=== PATIENT | male | born 1940 | race Caucasian/White ===

== ENCOUNTER 2017-01-04 21:37 | Inpatient (IN) | payer OTHER ==
--- NOTE | 2017-01-04 21:48 | PDOC ---
History of Present Illness - General Chief Complaint: Injury Stated Complaint: WEAKNESS/VOMITING Time Seen by Provider: 01/04/17 21:42 Exam Limitations: Clinical Condition - History of Present Illness Initial Comments: 76 year old M with PMH of liver transplant (on Tacrolimus), HLD, and BPH brought in by EMS after falling and calling EMS when he couldn't get back up. The patient admits he might be slightly more confused than usual. He fell because he claims that he hasn't eaten in 15 hours and felt weak after getting up from his chair. When asked why he hasn't eaten in 15 hours, he states he is unsure why and has "no good reason". He fell on his right side onto his forearm and right hip. Denies LOC, syncope, or pre-syncopal sensation but just claims he was too weak to stand and fell. Afterward, he felt some mid back tenderness, right arm pain, and right hip pain. He was down for a half an hour and began vomiting as well which was non bilious, non bloody. He lives at home alone and doesn't recall any recent illness, cough , chest osullivan, SOB, or other symptoms. Of note, he was AOx4 during the interview despite the fact that his story doesn' t quite add up. HE hasn nto been seen at this hospital before. 01/04/17 23:19 Past History - Past Medical History Allergies/Adverse Reactions: Allergies Allergy/AdvReac Type Severity Reaction Status Date / Time No Known Allergies Allergy Verified 01/04/17 21:53 Review of Systems - Review of Systems Constitutional: No: Chills, Diaphoresis, Fever HEENTM: No: Blurred Vision, Tearing, Recent change in vision Respiratory: No: Cough, Orthopnea, Shortness of Breath, SOB with Exertion Cardiac (ROS): No: Chest Pain, Edema, Irregular Heart Rate ABD/GI: Yes: Nausea, Poor Appetite, Vomiting. No: Abdominal Distended, Diarrhea : No: Dysuria, Discharge, Frequency Integumentary: Yes: Bruising Neurological: No: Headache, Numbness, Paresthesia *Physical Exam - Physical Exam General Appearance: Yes: Appropriately Dressed, Apparent Distress, Moderate Distress HEENT: positive: EOMI, SHARDA, Normal ENT Inspection. negative: Normal Voice ( Voice seemd slightly muffled and weak.) Neck: positive: Trachea midline, Normal Thyroid, Supple. negative: Tender, Rigid Respiratory/Chest: positive: Rhonchi (Bilateral rhonchi). negative: Chest Tender, Lungs Clear, Normal Breath Sounds, Respiratory Distress, Accessory Muscle Use Cardiovascular: positive: Regular Rhythm, Regular Rate, S1, S2. negative: Edema , JVD, Murmur Gastrointestinal/Abdominal: positive: Normal Bowel Sounds, Tender (Slightly ttp bilaterally across lower abdomen), Flat, Soft. negative: Pulsatile Mass Musculoskeletal: positive: Normal Inspection. negative: CVA Tenderness Extremity: positive: Normal Capillary Refill, Erythema, Other (Tender to palpation over right trocahnteric bursae but able to actively flex, extend, aduct, and abduct at hip joint. TTP over lateral olecranon but able to flex, extend, supinate and pronate. ). negative: Normal Inspection Integumentary: positive: Normal Color, Dry, Warm, Erythema, Bruising, Other ( Skin over lateral portion of forearm exhibting 3 x 5 cm abrasion with erythema, slight swelling, and epidermis loose from dermal layer. Not apparently infected appearing. ) Neurologic: positive: Fully Oriented, Alert, Normal Mood/Affect, Other (3/5 strength bilateral LEs. 4/5 stregnth in BL UEs). negative: Motor Strength 5/5 Medical Decision Making - Medical Decision Making 76 year old with liver transplant with unclear reason for fall and weakness. Patient is AOx4 yet does not have clear reason for being "hungry" and not ordering food for "15 hours". Will work up broadly with CBC, CMP, Troponin, CXR , XR Elbow, X ray hip, Xray t spine, UA, and EKG. Patient was signed out to Dr. Dickson with all tests pending, sleeping, in stable condition. 01/05/17 00:20 *DC/Admit/Observation/Transfer Diagnosis at time of Disposition: Fall - Attestations Physician Attestion: I, Dr. Lamine Perez, attest that this document has been prepared under my direction and personally reviewed by me in its entirety. I further attest, that it accurately reflects all work, treatment, procedures and medical decision -making performed by me. 01/05/17 00:27
[2017-01-04 21:56] VITALS: BMI 22.4
--- NOTE | 2017-01-04 22:28 | PDOC ---
Attending Attestation - Resident Resident Name: Lamine Perez - ED Attending Attestation I have performed the following: I have examined & evaluated the patient, The case was reviewed & discussed with the resident, I agree w/resident's findings & plan, Exceptions are as noted - HPI HPI: The patient is a 76 yo M with a past medical history significant for liver transplant, BPH, HLD who presents with mechanical fall. The patient states he fell on his R arm and R hip. The patient denies head trauma and LOC. Patient called EMS to get him and reported he was too weak to stand. The patient states he tried to get out of his chair and fell. He notes he hasnt eaten in 15 hours. The patient states he lives alone. The patient notes that he was on the floor for about 30 minutes and started to vomit while he was on the floor. The patient denies fevers, chills, cough and shortness of breath. - Physicial Exam PE: GENERAL: Well developed, well nourished. Awake and alert. No acute distress. HEENT: Normocephalic, atraumatic. PERRLA, EOMI. No conjunctival pallor. Sclera are non- icteric. Moist mucous membranes. Oropharynx is clear. NECK: Supple. Full ROM. No JVD. Carotid pulses 2+ and symmetric, without bruits. No thyromegaly. No lymphadenopathy. CARDIOVASCULAR: Regular rate and rhythm. No murmurs, rubs, or gallops. Distal pulses are 2+ and symmetric. PULMONARY: No evidence of respiratory distress. Lungs clear to auscultation bilaterally. No wheezing, rales or rhonchi. ABDOMINAL: Soft. Non-tender. Non-distended. No rebound or guarding. No organomegaly. Normoactive bowel sounds. MUSCULOSKELETAL Tenderness to palpation on R hip. Normal range of motion at all joints. No bony deformities or tenderness.Tenderness to T spine. EXTREMITIES: R arm abrasion of 3x5 cm with erythema and mild edema. No cyanosis. No clubbing. No edema. No calf tenderness. SKIN: Warm and dry. Normal capillary refill. No rashes. No jaundice. NEUROLOGICAL: Alert, awake, appropriate. Cranial nerves 2-12 intact. No deficits to light touch and temperature in face, upper extremities and lower extremities. 3/5 bilateral LE. 4/5 bilateral UE.. Normoreflexic in the upper and lower extremities. Normal speech. Toes are down-going bilaterally. Gait not assessed. PSYCHIATRIC: Cooperative. Good eye contact. Appropriate mood and affect. - Medical Decision Making Documentation prepared by Christine Alexandra, acting as medical doctor md for Alfonzo Nuno MD/DO. <IbrahimaChristine - Last Filed: 01/04/17 23:32> - Resident Resident Name: AnaLamine - ED Attending Attestation I have performed the following: I have examined & evaluated the patient, The case was reviewed & discussed with the resident, I agree w/resident's findings & plan <Alfonzo Nuno - Last Filed: 01/05/17 01:53> Discharge Disposition <IbrahimaChristine - Last Filed: 01/04/17 23:32> - Discharge Dispostion Admit: Yes <Alfonzo Nuno - Last Filed: 01/05/17 01:53> - Diagnosis Fall, Right-sided cerebrovascular accident (CVA) Heart Score/ECG Review #1 Sinus rhythm with 1st degree AV block @81bpm. Otherwise normal ECG. <IbrahimaChristine - Last Filed: 01/04/17 23:32> tPA Exclusion checklist 3-4.5h - Time Elapsed Date last known well: 01/04/17 Time last known well: 00:00 Elaspsed time: 1 Day(s) and 1 Hour(s) and 51 Minutes - Thrombolytic Therapy Candidate Is patient eligible for thrombolytic therapy: No - Exclusion Criteria 3-4.5 hr SBP greater than 185 or DBP greater than 110mmHg despite tx: No Recent IC/spinal surgery,head trauma or stroke<3mos.: No Hx IC hemorrhage, IC neoplasm, AV malformation or aneurysm: No Active internal bleeding: No Blding diathesis(low plt ct, inc PTT,INR>1.7 or use of NOAC): No Symptoms suggest subarachnoid hemorrhage: No CT demonstrates multilobar infarct(>1/3 cerebral hemiphere): No Arterial puncture at noncompressible site in previous 7 days: No Blood glucose concentration less than 50mg/dL (2.7mmol/L): No - Relative Exclusion Criteria 3-4.5 hr Life expectancy <1 yr or severe co-morbid illness: No : No Patient/family refused: No Rapid improvement: No Stroke severity too mild: No Recent acute AK (w/in previous 3 months): No Seizure at onset with postictal residual neuro impairments: No Major surgery or serious trauma w/in previous 14 days: No Recent GI or hemorrhage (w/in previous 21 days): No - Add'l Relative Exclusion 3-4.5 hr Age > 80: No Hx of both diabetes AND prior ischemic stroke: No Taking an oral anticoagulant regardless of INR: No - Ineligibility reason(s) Reasons No tPA given: See reason(s) noted above (unknown when pt was last known well) <Alfonzo Nuno - Last Filed: 01/05/17 01:53>
[2017-01-04] MEDS ORDERED: SODIUM CHLORIDE 1,000 ML IV STA (22:33)
--- NOTE | 2017-01-05 00:25 | PDOC ---
*Physical Exam - Vital Signs Last Vital Signs Temp Pulse Resp BP Pulse Ox 97.6 F 91 H 20 163/90 96 01/04/17 21:53 01/04/17 21:53 01/04/17 21:53 01/04/17 21:53 01/04/17 21:53 - Physical Exam Comments: Exam limited because patient taken to CT General Appearance: Yes: Nourished HEENT: positive: EOMI, SHARDA, Other (NCAT) Respiratory/Chest: positive: Lungs Clear, Normal Breath Sounds Cardiovascular: positive: Regular Rhythm, Regular Rate ED Treatment Course - LABORATORY CBC & Chemistry Diagram: 01/04/17 23:45 01/07/17 13:40 - RADIOLOGY Radiograph Interpretation: RAD/CHEST X-RAY PORTABLE* 2 views reveal a sclerotic knob and descending aorta, normal giovana, normal heart , clear lungs and no sign of a pneumothorax, pleural fluid or atelectasis. The angles are sharp and the soft tissues are intact. There are degenerative changes in the spine. There are upper abdominal left sided clips. If symptoms persist, further imaging may be of help. Impression: No acute pathology. Left upper quadrant clips. RAD/ELBOW-RIGHT AP, lateral and oblique views reveal no sign of acute fracture, subluxation bone destruction. There is olecranon spurring. There is slight periosteal thickening seen in the shafts of the radius and ulna. No sign of swelling, foreign body or soft tissue air. Fat pad elevation is not seen. If symptoms persist, further imaging may be of help. Impression: No acute pathology RAD/HIP PELVIS-RIGHT Single AP view of pelvis. Right hip 2 views. Status post total left hip replacement. No acute bony abnormalities are seen. Degenerative changes are observed at L4-5, L5-S1, disc space narrowing, facet joint arthropathy, left lateral bridging osteophyte at L4-5. No evidence of the right hip dislocation. No displaced fracture is seen. Cystic changes noted in the superior aspect of acetabulum. Impression. Status post total left hip replacement No evidence of the right hip fracture, or dislocation. No acute bony abnormalities are seen. CT/HEAD CT WITHOUT CONTRAST Findings. Serial axial images of the brain were obtained from foramen magnum to the cranial vertex without intravenous contrast. The study was supplemented with computer-generated coronal and sagittal reconstruction images. Online Marketing Strategist image was reviewed. Zone of decreased attenuation seen in the right cerebellum without hemorrhage - recent nonhemorrhagic stroke. Normal variant prominent cisterna magna. No evidence of acute subarachnoid hemorrhage, acute intra-axial or extra- axial fluid collection consistent with subdural or epidural hematoma. No mass effect, midline shift, acute supratentorial territorial ischemic changes, herniation or edema is present. Loss of volume of the brain parenchyma with involutional changes. Examination of the bone windows show no fracture. The visualized paranasal sinuses and mastoid air cells are clear. Symmetrical ocular globes. Unremarkable retro-orbital soft tissues. Impression. Recent nonhemorrhagic infarct - right cerebellum. No evidence of acute intracranial hemorrhage. No evidence of supratentorial acute territorial ischemic changes. CT/CERVICAL SPINE CT W/O CONTR Direct axial images were obtained from the base of the skull through T2. The study was supplemented with computer-generated sagittal, coronal reconstruction images. Findings. Straightening of the cervical spine is noted on the sagittal reconstruction images. No acute fracture, compression deformity, of subluxation is seen. Normal relationship of odontoid to anterior arch of C1. Intact odontoid. Normal symmetrical articulation of atlantoaxial and occipito atlantal joints. Osteoarthritis of the left atlantal axial Multilevel fusion of vertebral bodies, facet joints with ossification of the anterior paraspinal soft tissues consistent diffuse idiopathic skeletal hyperostosis (DISH). 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 Spinal stenosis. Midline posterior subcutaneous lipoma septations, without calcification.. The size of the lipoma 2.5 cm x 4.2 cm x 5.5 cm Extensive left facet joint arthropathy at C2-C3, right facet arthropathy at C3- C4. The intraspinal contents cannot be adequately evaluated due to the beam hardening artifacts. The airways are patent. No evidence of prevertebral soft tissue swelling. The lung apices are clear. Impression. No acute bony abnormality seen. Intact odontoid. The predental space is not widened. Multilevel fusion of vertebral bodies, facet joints with ossification of the anterior paraspinal soft tissues consistent diffuse idiopathic skeletal hyperostosis (DISH). 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 Spinal stenosis. - Medications Given in the ED: ED Medications Discontinued Medications Generic Name Dose Route Start Last Admin Trade Name Freq PRN Reason Stop Dose Admin Sodium Chloride 1,000 mls @ 1,000 mls/hr 01/04/17 22:33 01/04/17 23:32 Normal Saline - IV 01/04/17 23:32 1,000 mls/hr ASDIR STA Administration Progress Note - Progress Note Progress Note: Received sign-out for patient from Dr. Perez Patient is a stable 76 year old male liver transplant recipient presenting s/p fall from standing. Patient was down for 1/2 hour, unsure why he fell, endorsed dizziness, N/V and not eating prior to falling, right hip pain, mid back pain and a right forearm abrasion post fall, denied head trauma or LOC Standard bloodwork, coagulation, cardiac, UA, CXR, Borrego scan and xrays of hip and arm ordered and pending Per patient records from [place] obtained from , patient has history of HLN, ETOH cirrhosis s/p transplant (2004), thoracic aortic aneurism s/p repair ( 1998), AAA (4.5) mesenteric ischemia and CKD (CR baseline 2.6) Patient now endorses hitting right side of head on closet door, states he couldn 't get up because he was weak He is but lives alone, drives, high ADL Transplant Surgeon: Dr. Fadi Sharma ([facility]) Medical Decision Making - Medical Decision Making 76 yo male s/p fall from standing with an unclear story regarding cause, AAOx4, c/o arm pain, hip pain, lumbar spine pain. Ddx: intracerebral hemorrhage, hip fx, spine fx, infection, cardiac pathology, dehydration CBC, CMP CT head, spine, xray hip, arm cardiac w/o 01/05/17 00:37 CBC WBC 13.3 K/mm3 (4.0-10.0) H 01/04/17 23:45 RBC 5.08 M/mm3 (4.00-5.60) 01/04/17 23:45 Hgb 15.2 GM/dL (11.7-16.9) 01/04/17 23:45 Hct 46.0 % (35.4-49) 01/04/17 23:45 MCV 90.6 fl (80-96) 01/04/17 23:45 MCH 30.0 pg (25.7-33.7) 01/04/17 23:45 MCHC 33.1 g/dl (32.0-35.9) 01/04/17 23:45 RDW 13.9 % (11.9-15.9) 01/04/17 23:45 Plt Count 216 K/MM3 (134-434) 01/04/17 23:45 MPV 9.0 fl (7.5-11.1) 01/04/17 23:45 Neutrophils % 89.0 % (42.8-82.8) H 01/04/17 23:45 Lymphocytes % 5.8 % (8-40) L 01/04/17 23:45 Monocytes % 4.5 % (3.8-10.2) 01/04/17 23:45 Eosinophils % 0.2 % (0-4.5) 01/04/17 23:45 Basophils % 0.5 % (0-2.0) 01/04/17 23:45 ESR 5 mm/hr (0-20) 01/05/17 05:53 Leukocytosis (neutrophil predominant) INR wnl (1.12) Slightly acidotic (CO2 19) CR 2.9 (at baseline) Troponin(-), CK MB 5.643 (consistent with fall) BNP 494 (age adjusted wnl) CT reveals a recent nonhemorrhagic infarct in the right cerebellum Stroke protocol implemented (plavix, statin, neuro consult) Patient admitted to Dr. Yung by Dr. Nuno Right arm abrasion was cleaned and dressed *DC/Admit/Observation/Transfer Diagnosis at time of Disposition: Fall, Right-sided cerebrovascular accident (CVA) - Attestations Physician Attestion: 01/08/17 06:47 I, Dr. Herson Hung, attest that this document has been prepared under my direction and personally reviewed by me in its entirety. I further attest, that it accurately reflects all work, treatment, procedures and medical decision -making performed by me.
[2017-01-05 00:29] LABS: BASOPHIL 0.5 % (0-2.0); EOSINOPHIL 0.2 % (0-4.5); MCHC 33.1 g/dl (32.0-35.9); MEAN CELL VOLUME 90.6 fl (80-96); PLATELET COUNT 216 K/MM3 (134-434); RDW 13.9 % (11.9-15.9); WHITE BLOOD COUNT 13.3 K/mm3 (4.0-10.0)
[2017-01-05 00:52] LABS: ALBUMIN 4.3 g/dl (3.4-5.0); ANION GAP 13 (8-16); BILIRUBIN,TOTAL 0.6 mg/dL (0.2-1.0); CO2 19 mmol/L (21-32); CREATININE 2.9 mg/dL (0.7-1.3); GLUCOSE,RANDOM 126 mg/dL (74-106); SGOT/AST 29 U/L (15-37); SGPT/ALT 22 U/L (12-78); TOT PROT 7.9 g/dl (6.4-8.2)
[2017-01-05 00:55] LABS: ALK PHOS 113 U/L (45-117); TROPONIN I < 0.02 ng/ml (0.00-0.05)
[2017-01-05 01:00] LABS: INR 1.12 (0.82-1.09); PROTHROMBIN TIME (PATIENT) 12.3 SEC (9.98-11.88)
--- NOTE | 2017-01-05 01:49 | PN ---
Teaching Attending Note Name of Resident: Shahla Shields ATTENDING PHYSICIAN STATEMENT I saw and evaluated the patient. I reviewed the resident's note and discussed the case with the resident. I agree with the resident's findings and plan as documented. SUBJECTIVE: 76 M with pmhx of HLD, BPH, liver transplant who was BIBA s/p fall. States he felt weak because he did not eat for 15 hrs prior to fall. States he was on the ground for about half hr. and had non-bilious vomiting at that time. Notes his right arm, hip and back are tender. Does not know when he last felt well. OBJECTIVE: Physical: VS: Vital Signs Period Temp Pulse Resp BP Sys/Jesus Pulse Ox Last 24 Hr 97.6 F-98.8 F 84-91 18-20 157-163/90-96 96-98 GEN:NAD, Resting in bed HEENT: NCAT, PERRL CARD: RRR S1, S2 RESP: CTAB ABD: BSX4, NTD to palpation EXT: - C/C/E NEURO: L. facial droop, MS +5/5 bilateral UE/LE CT HEAD WO CON: Acute infarct of R. cerebellar lobe CT Thoracic Spine: 4.4cm upper abdomianl aa. EKG: SR with 1st deg. block CXR: No acute process ASSESSMENT AND PLAN: 76 M with HLD, BPH, s/p Liver transplant who presents s/p fall found to have acute cerebellar infarct 1.)Acute Cerebellar CVA -MRI Brain wo con -ECHO/Carotids -ASA (pt. refused full dose) -Cannot take statin due to liver transplant -HLD/Alc/TSH/ESR/B12/Folate -Speech and Swallow -Neuro Consult -EKG/Troponins 2.)HLD -Lipid panel 3.)S/P Fall -PT 4.) QUINTON/?CKD - U Lytes - Get base CR from prior labs - Avoid Nephrotoxins 5.)BPH - C/W Home meds 6.)Leukocytosis -Stat UA/CXR 7.)Dvt PPX -SCD Place in Stroke Tele
[2017-01-05] MEDS: ASPIRIN 325 MG ENTERIC COATED TABLET (FP) PO ONE ×2 (02:14→02:29)
--- NOTE | 2017-01-05 02:14 | HP ---
CHIEF COMPLAINT: Fall and hist head and arm . PCP: HISTORY OF PRESENT ILLNESS: Patient is a 76 Yo white male with PMHx of HLD, BPH, S/p liver transplant (on Tacrolimus) S/P hip replacement, S/P abdominal aneurysm clipped, who brought to the hospital today by EMS after he fell down. Patient lives by him self. Last seen [facility] his [facility] around 6 pm when he tried to get out of bed , he felt dizzy spinning around the room and he fell down hit his right arm and head against the wall. He complains of right arm and hip pain. Patient was on the floor for about one hour when the ambulance arrived. He Denies any LOC, or seizure symptoms. He was not able to get up because he felt weak and did not eat for the last 15 hours(not sure why ?). He denies any headache, blurry vision, chest pain , SOB, N/V/D/C , abdominal pain or any urinary symptoms. Patient has H/O similar fall 6 months ago. Patient is but live in separate apartment from his who was presented at the ED. 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 Smoking:None Alcohol:Previous heavy Alcoholic, S/P Liver transplant Drugs: denies Family History: Re Allergies No Known Allergies Allergy (Verified 01/04/17 21:53) HOME MEDICATIONS: Home Medications Medication Instructions Recorded Aspirin [ASA -] 81 mg PO DAILY 01/05/17 Famotidine [Pepcid] 20 mg PO BID 01/05/17 Sodium Bicarbonate 650 mg PO DAILY 01/05/17 Tacrolimus [Prograf] 1 mg PO AM 01/05/17 Tamsulosin HCl [Flomax] 0.4 mg PO BID 01/05/17 Trazodone HCl 25 mg PO HS PRN 01/05/17 REVIEW OF SYSTEMS CONSTITUTIONAL: Absent: fever, chills, diaphoresis, +generalized weakness, malaise, loss of appetite, weight change HEENT: Absent: rhinorrhea, nasal congestion, throat pain, throat swelling, difficulty swallowing, mouth swelling, ear pain, eye pain, visual changes CARDIOVASCULAR: Absent: chest pain, syncope, palpitations, irregular heart rate, lightheadedness , peripheral edema RESPIRATORY: Absent: cough, shortness of breath, dyspnea with exertion, orthopnea, wheezing, stridor, hemoptysis GASTROINTESTINAL: Absent: abdominal pain, abdominal distension, nausea, vomiting, diarrhea, constipation, melena, hematochezia GENITOURINARY: Absent: dysuria, frequency, urgency, hesitancy, hematuria, flank pain, genital pain MUSCULOSKELETAL: Absent: +myalgia, +arthralgia, joint swelling, back pain, neck pain SKIN: Absent: rash, itching, pallor, remarkable for right arm ecchymoses and some brusis on the left arm too HEMATOLOGIC/IMMUNOLOGIC: Absent: easy bleeding, easy bruising, lymphadenopathy, frequent infections ENDOCRINE: Absent: unexplained weight gain, unexplained weight loss, heat intolerance, cold intolerance NEUROLOGIC: Absent: headache, focal weakness or paresthesias, dizziness when he get up , unsteady gait, seizure, mental status changes, bladder or bowel incontinence PSYCHIATRIC: Absent: anxiety, depression, suicidal or homicidal ideation, hallucinations. PHYSICAL EXAMINATION Vital Signs - 24 hr 01/04/17 01/05/17 21:53 00:22 Temperature 97.6 F 98.8 F Pulse Rate 91 H Pulse Rate [ 84 Apical] Respiratory 20 18 Rate Blood Pressure 163/90 Blood Pressure 157/96 [Right Arm] O2 Sat by Pulse 96 98 Oximetry (%) GENERAL: Awake, alert, and fully oriented, in no acute distress. HEAD: Normal with no bruisis or ecchymosis.. EYES: Pupils equal, round and reactive to light, extraocular movements intact, sclera anicteric, conjunctiva clear. No lid lag. EARS, NOSE, THROAT: Ears normal, nares patent, oropharynx clear without exudates. NECK: Normal range of motion, supple without lymphadenopathy, JVD, or masses. LUNGS: Breath sounds equal, clear to auscultation bilaterally. No wheezes, and no crackles. No accessory muscle use. HEART: Regular rate and rhythm, normal S1 and S2 without murmur, rub or gallop. ABDOMEN: Soft, nontender, not distended, normoactive bowel sounds, no guarding, no rebound, no masses. No hepatomegaly or splenomegaly. MUSCULOSKELETAL: Normal range of motion at all joints. No bony deformities or tenderness. No CVA tenderness. UPPER EXTREMITIES: 2+ pulses, warm, well-perfused. No cyanosis. No clubbing. No peripheral edema. Right arm ecchymosis LOWER EXTREMITIES: 2+ pulses, warm, well-perfused. No calf tenderness. No peripheral edema. NEUROLOGICAL: Cranial nerves II-XII intact. Normal speech. shuffling gait , weakness in his right leg.3/5 strength bilateral LEs. 4/5 stregnth in B/L UEs. Finger nose test was negative. PSYCHIATRIC: Cooperative. Good eye contact. Appropriate mood and affect. SKIN: Warm, dry, normal turgor, no rashes or lesions noted, normal capillary refill. Laboratory Results - last 24 hr 01/04/17 01/04/17 01/04/17 23:45 23:45 23:45 WBC 13.3 H RBC 5.08 Hgb 15.2 Hct 46.0 MCV 90.6 MCH 30.0 MCHC 33.1 RDW 13.9 Plt Count 216 MPV 9.0 Neutrophils % 89.0 H Lymphocytes % 5.8 L Monocytes % 4.5 Eosinophils % 0.2 Basophils % 0.5 INR 1.12 Sodium 139 Potassium 4.9 Chloride 107 Carbon Dioxide 19 L Anion Gap 13 BUN 55 H Creatinine 2.9 H Creat Clearance w eGFR 21.15 Random Glucose 126 H Calcium 9.0 Total Bilirubin 0.6 AST 29 ALT 22 Alkaline Phosphatase 113 Creatine Kinase 240 Creatine Kinase Index 2.3 CK-MB (CK-2) 5.643 H Troponin I < 0.02 B-Natriuretic Peptide 494.01 H Total Protein 7.9 Albumin 4.3 Blood Type Antibody Screen 01/04/17 23:45 WBC RBC Hgb Hct MCV MCH MCHC RDW Plt Count MPV Neutrophils % Lymphocytes % Monocytes % Eosinophils % Basophils % INR Sodium Potassium Chloride Carbon Dioxide Anion Gap BUN Creatinine Creat Clearance w eGFR Random Glucose Calcium Total Bilirubin AST ALT Alkaline Phosphatase Creatine Kinase Creatine Kinase Index CK-MB (CK-2) Troponin I B-Natriuretic Peptide Total Protein Albumin Blood Type A POSITIVE Antibody Screen Negative CBC, BMP 01/04/17 23:45 01/04/17 23:45 CT HEAD (01/04/17): Acute infarct of the right cerebellar lobe CT Thoracic Spine (01/04/17): 4.4cm upper abdominal aortic aneurysm Chest X-Ray (01/04/17): No acute pathology CT Thoracic Spine: 4.4cm upper abdominal AA. EKG: SR with 1st deg block ASSESSMENT/PLAN: Patient is a 76 Yo white male with PMHx of HLD,CKD, BPH, S/p liver transplant ( on Tacrolimus), S/P hip replacement who brought to the hospital today by EMS after he fell down and he hit his head, right arm against the wall. In the ED he found to have acute infarct of the right cerebral lobe and was admitted to stroke/tele for further evaluation. # Acute cerebellar CVA * EKG, and trop to R/O ACS * Aspirine 81 MG (pt refused full dose ), pt also refused the statins, Gimfibrizol was given (home med) * MRI brain with out contrast, * Carotid Doppler , Echocardiogram * Lipid panel , * Folic acid , B12 * CRP, ESR * TSH, A1C * Speech and swallow test * Neurocheck every 12 hours * Neuroconsult * PT * * # S/P Fall * Fall risk precautions * PT * # Leuckocytosis: * WBC 13.000 * CBC, BMP * UA * CXR * repeat in the mori # S/P liver Transplant * Procedure was done around 1998 * Check prograf level * Prograf 0.5 MG Q 48/H starting on today 01/05/2017@ 10 AM * Contact his liver Transplant Dr.Glyn Tobar @ [facility] @ [phone] * * * # HLD , chronic * Lipid panel * Continue home med Gemfibrozil * * # CKD : * Cr base line 2.6, Cr Today 2.9 * Avoid nephrotoxic agents * IV Fluids 0.9 NS @ 75 cc/h * UA , Urine lytes * * # BPH, Chronic * Continue home meds Flomax 0.4 mg PO BID * # F/E/N * NPO till pass till swallow test, IVF 0.9 NS @ 75 CC/h * Electrolytes :WNL * NPO till swallow test, then regular diet with aspiration precaution * * # Proph: * DVT : High risk, SCDS * GI: Continue home meds Pepcid * # Dispo: * Admit to stroke tele * Full Code Discuss with Dr. Mae and the team Dr. Carlos Haley PGY 1 Visit type - Emergency Visit Emergency Visit: Yes ED Registration Date: 01/05/17 Care time: The patient presented to the Emergency Department on the above date and was hospitalized for further evaluation of their emergent condition. - New Patient This patient is new to me today: Yes Date on this admission: 01/08/17 - Critical Care Critical Care patient: No
[2017-01-05] MEDS ORDERED: ASPIRIN 325 MG ENTERIC COATED TABLET (FP) ONE (02:17)
--- NOTE | 2017-01-05 04:34 | HP ---
HISTORY OF PRESENT ILLNESS: Patient is a 76 year old male with a PMHx of Liver transplant (On Tacrolimus), HLD, CKD, BPH who was BIBEMS s/p fall. Patient reports he felt weak throughout the day and relates it to poor oral intake for the last 24 hours but is unsure why he feels this way. Patient remembers standing up then feeling weak and falling on his right side landing on his right forearm and right hip. Otherwise , patient denies fever, chills, abdominal pain, chest pain, palpitations, shortness of breath. HOME MEDICATIONS: Home Medications Medication Instructions Recorded Aspirin [ASA -] 81 mg PO DAILY 01/05/17 Famotidine [Pepcid] 20 mg PO BID 01/05/17 Sodium Bicarbonate 650 mg PO DAILY 01/05/17 Tacrolimus [Prograf] 1 mg PO AM 01/05/17 Tamsulosin HCl [Flomax] 0.4 mg PO BID 01/05/17 Trazodone HCl 25 mg PO HS PRN 01/05/17 Gemfibrozil 600 mg PO BID 01/05/17 PHYSICAL EXAMINATION Vital Signs - 24 hr 01/04/17 01/05/17 21:53 00:22 Temperature 97.6 F 98.8 F Pulse Rate 91 H Pulse Rate [ 84 Apical] Respiratory 20 18 Rate Blood Pressure 163/90 Blood Pressure 157/96 [Right Arm] O2 Sat by Pulse 96 98 Oximetry (%) GENERAL: Awake, alert, and fully oriented, in no acute distress. HEAD: Normal with no signs of trauma. EYES: Extraocular movements intact, sclera anicteric, conjunctiva clear. LUNGS: Breath sounds equal, clear to auscultation bilaterally. No wheezes, and no crackles. No accessory muscle use. HEART: Regular rate and rhythm, normal S1 and S2 without murmur, rub or gallop. ABDOMEN: Soft, nontender, not distended, normoactive bowel sounds, no guarding, no rebound, no masses. UPPER EXTREMITIES: 3x5cm abrasion of the skin on the lateral aspect of the forearm with mild swelling, erythema. No peripheral edema. LOWER EXTREMITIES: No peripheral edema. NEUROLOGICAL: Slurred speech with mild left facial droop. sensory intact throughout. Motor strength 5/5 throughout. Abnormal Lab Results 01/04/17 01/04/17 23:45 23:45 WBC 13.3 H Neutrophils % 89.0 H Lymphocytes % 5.8 L Carbon Dioxide 19 L BUN 55 H Creatinine 2.9 H Random Glucose 126 H CK-MB (CK-2) 5.643 H B-Natriuretic Peptide 494.[address] HEAD (01/04/17): Acute infarct of the right cerebellar lobe CT Thoracic Spine (01/04/17): 4.4cm upper abdominal aortic aneurysm Chest X-Ray (01/04/17): No acute pathology ASSESSMENT/PLAN: Patient is a 76 year old male with a PMHx of Liver transplant (On Tacrilomus), HLD, CKD, BPH who presented for s/p fall and was found to have an acute stroke. Patient admitted for further monitoring and management. Acute Cerebellar CVA -ECHO, Carotid Doppler, MRI of brain ordered -ASA loading dose ordered but patient refused loading dose and wants baby ASA -Lipid panel, A1C, TSH, ESR/CRP, B12/Folate ordered -Will resume Gemfibrozil. Unable to take statin due to liver transplant but may take Pravastatin, which is not carried in this hospital. -Continue to trend EKG and Troponin -Speech and swallow consult placed -Neuro Checks -Physical therapy placed -Neuro consult placed S/P Fall -Fall risk precaution -Physical therapy ordered S/P Liver transplant ->10+ years ago -Check Prograf levels. -Continue Profrag 0.5mg Q48H with next dose in the morning (01/05/17) -Contact liver transplant physician due to careful monitoring of any medications administered. Dr. Fadi Sharma [phone] HLD -Lipid Panel ordered -Continue home medication Gemfibrozil QUINTON on CKD - reports baseline of 2.6 -Urine lytes ordered -IV Fluids -Continue to monitor BMP -Avoid Nephrotoxic meds BPH -Continue with home medication Flomax F/E/N -IV NS @75cc/hr -Electrolytes wnl -NPO until speech and swallow evaluation Prophylaxis -High Risk. SCD's for DVT prophylaxis -Continue home medication Pepcid for history of GERD Disposition -Full code -Admit to Stroke/Telemetry. Waiting for Neurology evaluation and recommendation Visit type - Emergency Visit Emergency Visit: Yes ED Registration Date: 01/05/17 Care time: The patient presented to the Emergency Department on the above date and was hospitalized for further evaluation of their emergent condition. - New Patient This patient is new to me today: Yes Date on this admission: 01/05/17 - Critical Care Critical Care patient: No
[2017-01-05] MEDS: TACROLIMUS 0.5 MG CAPSULE (NF) PO SCH (08:00)
[2017-01-05 09:05] LABS: ALBUMIN 4.2 g/dl (3.4-5.0); ALK PHOS 114 U/L (45-117); ANION GAP 14 (8-16); BILIRUBIN,TOTAL 0.7 mg/dL (0.2-1.0); C-REACTIVE PROTEIN 1.2 MG/DL (0.00-0.3); CHOLESTEROL 250 mg/dL (50-200); CO2 16 mmol/L (21-32); CREATININE 2.7 mg/dL (0.7-1.3); GLUCOSE,RANDOM 126 mg/dL (74-106); SGOT/AST 29 U/L (15-37); SGPT/ALT 22 U/L (12-78); TOT PROT 7.8 g/dl (6.4-8.2); TROPONIN I < 0.02 ng/ml (0.00-0.05)
[2017-01-05 09:45] LABS: THYROID STIMULATING HORMONE 0.81 uIU/ml (0.358-3.74)
[2017-01-05] MEDS ORDERED: TACROLIMUS 0.5 MG CAPSULE (NF) PO SCH (10:00)
--- NOTE | 2017-01-05 10:16 | EKG ---
Test Reason : Blood Pressure : / mmHG Vent. Rate : 081 BPM Atrial Rate : 081 BPM P-R Int : 286 ms QRS Dur : 082 ms QT Int : 410 ms P-R-T Axes : 008 085 046 degrees QTc Int : 476 ms SINUS RHYTHM WITH 1ST DEGREE A-V BLOCK OTHERWISE NORMAL ECG NO PREVIOUS ECGS AVAILABLE Confirmed by MD SEAN, TG ([id number]) on 01/05/2017 10:16:24 AM Referred By: Confirmed By:TG ESTRADA MD
--- NOTE | 2017-01-05 10:22 | CONSULT ---
Admitting History and Physical - Primary Care Physician PCP: Austyn Pena - Admission History of Present Illness: Patient is a 76 year old male with a PMHx of Liver transplant, HLD, CKD, BPH who presented for s/p fall, with acute cerebellar stroke. History Source: Patient, Medical Record Limitations to Obtaining History: Clinical Condition - Smoking History Smoking history: Never smoked Have you smoked in the past 12 months: No - Alcohol/Substance Use Hx Alcohol Use: No History - Admission Reason For Visit: FALL CVA RIGHT SIDED (STROKE BED) - Diagnostics X-ray: Report Reviewed CT Scan: Report Reviewed (CT Thoracic Spine (01/04/17): 4.4cm upper abdominal aortic aneurysm CT HEAD (01/04/17): Acute infarct of the right cerebellar lobe) - General Mental Status: Alert and Oriented, Awake and Alert, Able to Follow Commands, Vague (at times) Attention: Intact Ability to Follow Directions: Good Head/Neck Control: Good - Hearing Hearing: Normal Hearing Aide: No With Patient: No Speech Evaluation - Communication Primary Language: AUSTRALIAN Communication: Yes: Dysarthria Oral Expression Ability: Yes: Mild Impairment - Speech Production Able to Make Needs Known: Yes: Mildly Impaired Intelligibility: Yes: Mildly Impaired - Speech Characteristics Voice Loudness: Excessive Variation Voice Pitch: Yes: Normal Voice Phonatory-based Quality: Yes: Normal Speech Pattern: Impaired Speech Clarity: < 75% Nasal Resonance: Normal Articulation: Yes: Imprecise - Language/Auditory Comprehension Follows: Yes: 1 Stage Simple Commands - Language/Verbal Expression Able to Respond to Simple Queries: Yes: WNL Able to Communicate Wants and Needs: Yes: WNL Functional Communication Status: Yes: WNL - Swallow Evaluation/Bedside Assessment Current Nutritional Intake: NPO Oral Secretions: Yes: WFL Dentition: Yes: Adequate, Dental Appliance Upper, Dental Appliance Lower Facial Symmetry at Rest: Symmetrical Facial Symmetry on Retraction: Symmetrical Pucker Lips: Weak (mild,symmetric) Smile: Weak (mild,symmetric) Lingual Speed of Movement: Reduced Lingual Movement Strgth Against Opposition: Reduced Lingual Movement Characteristics: Normal Laryngeal Movement: Able to Palpate, Labored,delay initiation Rate of Intake: Slow/Holding Labial Seal: WFL Chewing: Impaired (slow, reduced efficiency) Oral Prep Time: Increased A-P Transit: Impaired Pocketing: Present Bilaterally (mild) Timing of Swallow: Delayed Coughing/Throat Clear: No Change in Voice: No Recommendations - Speech Evaluation, Impression/Plan Impression: Mild dysarthria with reduced articulatory rate and precision with fair intelligibility. Good stimulability. Vomited before I arrived, c/o chest pain, but unable to express symptoms well.o x 3. Possibly impaired insight. also c/o burning in chest. Possibly related to regurgitation of stomach acid. Nursing made aware. w/u in progress. - Dysphagia Impressions/Plan Dysphagia Impressions: Mild Impairment *Silent aspiration: cannot be R/O at bedside Dysphagia Treatment Plan: Elevate HOB during feed, Other (upright 1 hour after meals.) Recommendations: Modified Barium Swallow (If cough, throat clearing, congestion , continued vomiting, hold PO. MBS when medically stable.), Other (observe po tolerance.) - Recommendations Diet Consistency: Mechanical Soft Medication Administration: Whole with water Liquids: Thin Liquids
[2017-01-05] MEDS: SODIUM BICARBONATE 325 MG TABLET PO SCH (11:00)
[2017-01-05] MEDS: RANITIDINE HCL 150 MG TABLET (FP) PO SCH ×2 (11:28→22:00)
[2017-01-05] MEDS: SODIUM CHLORIDE 1,000 ML IV SCH (11:29)
[2017-01-05] MEDS: TAMSULOSIN HCL 0.4 MG CAP.ER.24H (FP) PO SCH ×2 (11:29→22:01)
[2017-01-05] MEDS: ASPIRIN COATED 81 MG TABLET.EC PO SCH (11:29)
--- NOTE | 2017-01-05 15:56 | PN ---
Physical Exam: SUBJECTIVE: Patient seen and examined at bedside. Pt states that he is very hungry and feeling weak. Diet switched to soft mechanical, thin liquids. Denies chest pain, headache, SOB. OBJECTIVE: Vital Signs Period Temp Pulse Resp BP Sys/Jesus Pulse Ox Last 24 Hr 97.2 F-98.5 F 83-90 20-20 122-170/64-95 98-98 GENERAL: The patient is awake, alert, and fully oriented, in no acute distress. HEAD: Normal with no signs of trauma. EYES: PERRL, extraocular movements intact, sclera anicteric, conjunctiva clear. No ptosis. ENT: pt refused ENT exam NECK: Trachea midline, supple. LUNGS: Breath sounds equal, clear to auscultation bilaterally, no wheezes, no crackles, no accessory muscle use. HEART: Regular rate and rhythm, S1, S2 without murmur, rub or gallop. ABDOMEN: Soft, nontender, nondistended, normoactive bowel sounds, no guarding, no rebound, EXTREMITIES: 2+ posterior tibial pulses, warm, well-perfused, no edema. NEUROLOGICAL: Cranial nerves II through XII grossly intact. Normal speech; patient has dentures out. Strength 4/5 in upper and lower extremities. Sensation diminished on R lateral calf. SKIN: Warm, dry, normal turgor, R arm ecchymoses near lateral epicondyle, bruises/discoloration on L forearm Laboratory Results - last 24 hr 01/05/17 01/05/17 01/05/17 05:53 05:53 05:53 ESR 5 PTT (Actin FS) 38.9 H Sodium 138 Potassium 4.5 Chloride 108 H Carbon Dioxide 16 L Anion Gap 14 BUN 54 H Creatinine 2.7 H Creat Clearance w eGFR 22.97 Random Glucose 126 H Hemoglobin A1c % Calcium 9.0 Total Bilirubin 0.7 AST 29 ALT 22 Alkaline Phosphatase 114 Creatine Kinase 323 H D Creatine Kinase Index 1.9 CK-MB (CK-2) 6.325 H CK-MB (CK-2) Rel Index Troponin I < 0.02 C-Reactive Protein 1.2 H Total Protein 7.8 Albumin 4.2 Triglycerides 168 H Cholesterol 250 H Total LDL Cholesterol 161 H HDL Cholesterol 36 L Vitamin B12 374 TSH 0.81 01/05/17 01/05/17 01/05/17 05:53 05:53 06:20 ESR PTT (Actin FS) Sodium Potassium Chloride Carbon Dioxide Anion Gap BUN Creatinine Creat Clearance w eGFR Random Glucose Hemoglobin A1c % 5.2 Calcium Total Bilirubin AST ALT Alkaline Phosphatase Creatine Kinase Cancelled Creatine Kinase Index CK-MB (CK-2) CK-MB (CK-2) Rel Index Cancelled Troponin I C-Reactive Protein Total Protein Albumin Triglycerides Cholesterol Total LDL Cholesterol HDL Cholesterol Vitamin B12 TSH Active Medications Generic Name Dose Route Start Last Admin Trade Name Freq PRN Reason Stop Dose Admin Aspirin 81 mg 01/05/17 10:00 01/05/17 11:29 Ecotrin - PO 81 mg DAILY MARIA DEL CARMEN Administration Sodium Chloride 1,000 mls @ 75 mls/hr 01/05/17 03:45 01/05/17 11:29 Normal Saline - IV 75 mls/hr ASDIR MARIA DEL CARMEN Administration Ranitidine HCl 150 mg 01/05/17 10:00 01/05/17 11:28 Zantac - PO 150 mg BID MARIA DEL CARMEN Administration Sodium Bicarbonate 650 mg 01/05/17 10:00 Sodium Bicarbonate - PO DAILY MARIA DEL CARMEN Tacrolimus 0.5 mg 01/05/17 08:00 01/05/17 08:00 Prograf (Non-Formulary) PO 0.5 mg DAILY@0800 MARIA DEL CARMEN Administration Tamsulosin HCl 0.4 mg 01/05/17 08:30 01/05/17 11:29 Flomax - PO 0.4 mg BID@0830,2200 MARIA DEL CARMEN Administration Trazodone HCl 25 mg 01/05/17 03:54 Desyrel - PO HS PRN INSOMNIA ASSESSMENT/PLAN: 76 y/o M with PMH HLD, CKD, s/p liver transplant, admitted for acute infarct of R cerebellar lobe. 1. Acute cerebellar CVA -CT head: Acute infarct of R cerebellar lobe -Continue Ecotrin 81 mg -MRI brain w/o contrast: determine if still needed, since CT head already showed acute infarct -Carotid Doppler: ordered, results pending - to look for stenoses, possible athlerosclerotic emboli source -Lipid panel: Triglycerides 168 , Cholesterol 250, LDL 161 - all elevated, HDL low -Speech and swallow evaluation completed: mild dysarthria, diet changed to soft mechanical, thin liquids -Will follow up Neurology recommendations (Dr. Cat) -NIH Stroke scale: 1 2. Nausea, burning pain mid-sternal area r/o cardiac cause -Nausea: cardiac vs. neuro -Continue Zantac 150 mg PO BID -Troponins: first two are negative -CK-MB elevated (6.325), but not 10% CK value therefore not suspicious of cardiac cause 3. s/p Liver transplant -F/u Tacrolimus levels (Prograf) -Tarcolimus level for today pending -Tacrolimus daily 0.5mg daily -Patient's home Liver transplant physician Dr. Von Sharma @ [place] [phone] -avoid hepatotoxic meds 4. CKD/QUINTON on CKD -BUN 55, Cr 2.9, patient Cr baseline 2.6 -urine electrolytes -IVF NS @ 75 cc/hr 5. BPH- chronic -Continue home medications, Flomax 0.4 mg PO BID 6. Insomnia -Continue Desyrel (Trazodone) 25mg PO HS PRN 7. Fall risk -Precautions in place -PT when more stable Prophylaxis DVT: SCD's Visit type - Emergency Visit Emergency Visit: No - New Patient This patient is new to me today: Yes Date on this admission: 01/05/17 - Critical Care Critical Care patient: No
--- NOTE | 2017-01-05 17:21 | PN ---
Teaching Attending Note Name of Resident: Alycia Martinez ATTENDING PHYSICIAN STATEMENT I saw and evaluated the patient. I reviewed the resident's note and discussed the case with the resident. I agree with the resident's findings and plan as documented. SUBJECTIVE: Patient feels weak. OBJECTIVE: Vital Signs Period Temp Pulse Resp BP Sys/Jesus Pulse Ox Last 24 Hr 97.2 F-98.8 F 83-91 18-20 122-170/64-96 96-98 HEART: S1S2, RRR LUNGS: Clear ABDOMEN: Soft, non-tender, non-distended, normal BS EXTREMITIES: No edema NEUROLOGICAL: Alert, oriented x3. Normal speech. Visual murcia intact. Strength 4/5 in all extremities. Sensation intact. Gait not observed. ASSESSMENT AND PLAN: This is a 76-year-old man with a history of hyperlipidemia, stage 4 CKD, BPH, liver transplant who presented to the ER after falling and hitting his head and right arm on a wall. 1. Acute right cerebellar ischemic infarct - Continue aspirin - Refused statin secondary to liver transplant - Neurology consult - Echocardiogram shows normal LV function, normal RV function, mild MR, mild TR, mild AR - Carotid dopplers ordered - Physical therapy and swallow evaluations appreciated 2. History of liver transplant - Continue Prograf 3 Hyperlipdemia - Continue gemfibrozil 4. Stage 4 CKD - Creatinine at baseline - Continue sodium bicarbonate 5. BPH - Continue Flomax
--- NOTE | 2017-01-05 17:52 | CON.NEURO ---
Consult - Alcohol/Substance Use Hx Alcohol Use: No - Smoking History Smoking history: Never smoked Have you smoked in the past 12 months: No Home Medications - Allergies Allergies/Adverse Reactions: Allergies Allergy/AdvReac Type Severity Reaction Status Date / Time No Known Allergies Allergy Verified 01/04/17 21:53 - Home Medications Home Medications: Ambulatory Orders Aspirin [ASA -] 81 mg PO DAILY 01/05/17 Famotidine [Pepcid] 20 mg PO BID 01/05/17 Sodium Bicarbonate 650 mg PO DAILY 01/05/17 Tacrolimus [Prograf] 1 mg PO AM 01/05/17 Tamsulosin HCl [Flomax] 0.4 mg PO BID 01/05/17 Trazodone HCl 25 mg PO HS PRN 01/05/17 Physical Exam-Neuro Vital Signs: Vital Signs Temperature 98.5 F 01/05/17 14:00 Pulse Rate 83 01/05/17 14:40 Respiratory Rate 20 01/05/17 14:40 Blood Pressure 146/85 01/05/17 14:40 O2 Sat by Pulse Oximetry (%) 98 01/05/17 09:00 Labs: CBC, BMP 01/05/17 05:53 INR, PTT INR 1.12 (0.82-1.09) 01/04/17 23:45 NIH Stroke Scale - Total Score NIH Stroke Scale Score: 0 Imaging - Results Cat Scan: Report Reviewed Assessment/Plan cc fall , right leg weakness and slurring of speech HPI 76 year old male history of bph, hlp, s/p liver transplant . Patient has been feeling dizzzy on january 04 and felt down. He felt slurring of speech difficulty. Patient was also complain of right hip and arm pain. He is feeling better now and no dysphagia, diplopia or swallowing difficulty. He feels he is back to normal except he feel his speech is slightly off. He denies any headhcae, ct scan of brain was unremarkable. Hew was taking aspirin at home, He takes prograf for liver transplant. 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 , history of alcohol use HOME MEDICATIONS: Home Medications Medication Instructions Recorded Aspirin [ASA -] 81 mg PO DAILY 01/05/17 Famotidine [Pepcid] 20 mg PO BID 01/05/17 Sodium Bicarbonate 650 mg PO DAILY 07/21/17 Tacrolimus [Prograf] 1 mg PO AM 01/05/17 Tamsulosin HCl [Flomax] 0.4 mg PO BID 01/05/17 Trazodone HCl 25 mg PO HS PRN 01/05/17 Neurological Examination bp is 140/76, able to swallow, alert follow command eomi, no face asymmetry, patient feels speech is different there is no motor weakness identified on right upper extremity and lower extremity no sensory loss and no sensory loss ct unremarkable Assessment-- possible left mca Lacunar infarct /TIA Plan agree with continuation of aspirin, mri of brain and carotid ultrasound - would add lipitor 10 mg if ok with primary - risk factor modifications - swallowing consult appreciated - continue pt and dvt prophylaxis - I would be away this weekend, feel free to call me [phone] or water pollution control technician neurology person Thanks for consult Danny Damian MD
[2017-01-06] MEDS: SODIUM CHLORIDE 1,000 ML IV SCH (04:38)
[2017-01-06] MEDS ORDERED: PT OWN MED DRAWER 7, Y5N ONE (09:30)
[2017-01-06] MEDS: SODIUM BICARBONATE 325 MG TABLET PO SCH (09:33)
[2017-01-06] MEDS: TAMSULOSIN HCL 0.4 MG CAP.ER.24H (FP) PO SCH ×2 (09:33→21:00)
[2017-01-06] MEDS: ASPIRIN COATED 81 MG TABLET.EC PO SCH (09:33)
[2017-01-06] MEDS: TACROLIMUS 0.5 MG CAPSULE (NF) PO SCH (09:35)
[2017-01-06] MEDS: RANITIDINE HCL 150 MG TABLET (FP) PO SCH ×2 (09:36→21:00)
--- NOTE | 2017-01-06 13:09 | PN ---
Physical Exam: SUBJECTIVE: Patient seen and examined at bedside. Pt denies any change in speech (from yesterday) or motor strength. Denies SOB, chest or extremity pain, or headache. OBJECTIVE: Vital Signs Period Temp Pulse Resp BP Sys/Jesus Pulse Ox Last 24 Hr 97.9 F-979 F 77-88 18-20 116-155/64-89 98 GENERAL: The patient is awake, alert, and fully oriented, in no acute distress. HEAD: Normal with no signs of trauma. EYES: PERRL, extraocular movements intact, sclera anicteric, conjunctiva clear. No ptosis. ENT: pt refused ENT exam NECK: Trachea midline, supple. LUNGS: Breath sounds equal, clear to auscultation bilaterally, no wheezes, no crackles, no accessory muscle use. HEART: Regular rate and rhythm, S1, S2 without murmur, rub or gallop. ABDOMEN: Soft, nontender, nondistended, normoactive bowel sounds, no guarding, no rebound EXTREMITIES: 2+ posterior tibial pulses, warm, well-perfused, no edema. NEUROLOGICAL: Cranial nerves II through XII grossly intact. Normal nose to finger test, heel to lee (supine). Mild sensation deficit R lateral calf muscle. Motor strength 4/5 in all extremities PSYCH: Improved mood (compared to yesterday), more pleasant Active Medications Generic Name Dose Route Start Last Admin Trade Name Freq PRN Reason Stop Dose Admin Aspirin 81 mg 01/05/17 10:00 01/06/17 09:33 Ecotrin - PO 81 mg DAILY MARIA DEL CARMEN Administration Sodium Chloride 1,000 mls @ 75 mls/hr 01/05/17 03:45 01/06/17 04:38 Normal Saline - IV 75 mls/hr ASDIR MARIA DEL CARMEN Administration Ranitidine HCl 150 mg 01/05/17 10:00 01/06/17 09:36 Zantac - PO Not Given BID MARIA DEL CARMEN Sodium Bicarbonate 650 mg 01/05/17 10:00 01/06/17 09:33 Sodium Bicarbonate - PO 650 mg DAILY MARIA DEL CARMEN Administration Tacrolimus 0.5 mg 01/05/17 08:00 01/06/17 09:35 Prograf (Non-Formulary) PO Not Given DAILY@0800 MARIA DEL CARMEN Tamsulosin HCl 0.4 mg 01/05/17 08:30 01/06/17 09:33 Flomax - PO 0.4 mg BID@0830,2200 MARIA DEL CARMEN Administration Trazodone HCl 25 mg 01/05/17 03:54 Desyrel - PO HS PRN INSOMNIA ASSESSMENT/PLAN: 76 y/o M with PMH HLD, CKD, s/p liver transplant, admitted for acute infarct of R cerebellar lobe. 1. Acute cerebellar CVA -Continue Ecotrin 81 mg -MRI brain w/o contrast: acute R cerebellar hemispheric infarct, punctate chronic R basal ganglia infarcts -Carotid Doppler: no evidence of high grade carotid artery stenosis -Echo: regional wall motion abnormalities can't be excluded because of poor visualization -Lipid panel: Triglycerides 168 , Cholesterol 250, LDL 161 - all elevated, HDL low -Lipitor 10mg recommended by Neuro, will discuss with team -NIH Stroke scale: 1 (unchanged from yesterday) 2. Nausea, burning pain mid-sternal area r/o cardiac cause- resolved -Continue Zantac 150 mg PO BID 3. s/p Liver transplant -F/u Tacrolimus levels (Prograf) -Tarcolimus level pending -Tacrolimus daily 0.5mg daily -Patient's home Liver transplant physician Dr. Von Sharma @ [place] [phone] -avoid hepatotoxic meds 4. CKD/QUINTON on CKD -patient Cr baseline 2.6 -urine electrolytes pending -IV NS 5. BPH- chronic -Continue home medications, Flomax 0.4 mg PO BID 6. Insomnia -Continue Desyrel (Trazodone) 25mg PO HS PRN 7. Fall risk -Precautions in place -PT reassess for rehab, difficult for patient to stand without losing balance Prophylaxis DVT: SCD's F/E/N -IVF NS @ 75 cc/hr -Will monitor electrolytes -Mechanical soft diet with thin liquids Visit type - Emergency Visit Emergency Visit: No - New Patient This patient is new to me today: No - Critical Care Critical Care patient: No
--- NOTE | 2017-01-06 16:51 | PN ---
Teaching Attending Note Name of Resident: Alycia Martinez ATTENDING PHYSICIAN STATEMENT I saw and evaluated the patient. I reviewed the resident's note and discussed the case with the resident. I agree with the resident's findings and plan as documented. SUBJECTIVE:c/o generalized weakness and slurred speech although it is better than yesterday. dizzyness has resolved. denies Cp, SOB, fever, chills, N/V/C/D OBJECTIVE: Last Vital Signs Temp Pulse Resp BP Pulse Ox 97.5 F L 84 18 137/63 96 01/06/17 15:04 01/06/17 15:04 01/06/17 15:04 01/06/17 15:04 01/06/17 09:30 General NAD CV S1 S2 RRR no murmur/rub/gallop Lungs CTA B/L no wheezing/rales/rhonchi Neuro CN II- XII grossly intact, unable to follow complicated tasks. no pronator drift. sensation and strength grossly intact in all extremities. negative babinski, negative heel to lee. pt refused to stand or gait testing ASSESSMENT AND PLAN: 76-year-old man with a history of hyperlipidemia, stage 4 CKD, BPH, liver transplant who presented to the ER after falling and hitting his head and right arm on a wall. 1. Acute right cerebellar ischemic infarct- no events on property assessment monitor. on asa , unable to increase a/c due to liver transplant. unable to start statin due to liver transplant. passed swallow test. will need STELLA on discharge. 2. History of liver transplant- Continue Prograf 3 Hyperlipdemia- Continue gemfibrozil 4. Stage 4 CKD- Creatinine at baseline. dc IVF. cont sodium bicarb 5. BPH - Continue Flomax 6. DVT ppx- SCD 7. efrem monitor on property assessment monitor additional 24H. will need STELLA on discharge. d/ w plan with family (/daughter/granddaughter) present at bedside. all questions answered. verbalized understanding and agreement with plan. Family requesting [facility].
[2017-01-06] MEDS: traZODone HCL 50 MG TABLET (FP) PO PRN (21:00)
[2017-01-07] MEDS ORDERED: PT OWN MED DRAWER 7, Y5N ONE (09:08)
[2017-01-07] MEDS: TACROLIMUS 0.5 MG CAPSULE (NF) PO SCH (09:28)
[2017-01-07] MEDS: SODIUM BICARBONATE 325 MG TABLET PO SCH (09:29)
[2017-01-07] MEDS: ASPIRIN COATED 81 MG TABLET.EC PO SCH (09:29)
[2017-01-07] MEDS: TAMSULOSIN HCL 0.4 MG CAP.ER.24H (FP) PO SCH ×2 (09:29→21:13)
[2017-01-07] MEDS: RANITIDINE HCL 150 MG TABLET (FP) PO SCH ×2 (09:29→21:13)
[2017-01-07 09:30] LABS: ANION GAP 9 (8-16); CALCIUM 8.7 mg/dL (8.5-10.1); CO2 20 mmol/L (21-32); CREATININE 2.7 mg/dL (0.7-1.3); GLUCOSE,RANDOM 99 mg/dL (74-106)
--- NOTE | 2017-01-07 12:25 | PN ---
Progress Note (short form) - Note Progress Note: states slurred speech is improving. remains dizzy when sitting. refuses to get out of bed due to dizzyness. denies Cp, SOB, fever, chills, N/V/C/D. tolerating diet. no difficulty swallowing. Current Medications Generic Name Dose Route Start Last Admin Trade Name Freq PRN Reason Stop Dose Admin Aspirin 81 mg 01/05/17 10:00 01/07/17 09:29 Ecotrin - PO 81 mg DAILY MARIA DEL CARMEN Administration Ranitidine HCl 150 mg 01/05/17 10:00 01/07/17 09:29 Zantac - PO 150 mg BID MARIA DEL CARMEN Administration Sodium Bicarbonate 650 mg 01/05/17 10:00 01/07/17 09:29 Sodium Bicarbonate - PO 650 mg DAILY MARIA DEL CARMEN Administration Tacrolimus 0.5 mg 01/05/17 08:00 01/07/17 09:28 Prograf (Non-Formulary) PO 0.5 mg DAILY@0800 MARIA DEL CARMEN Administration Tamsulosin HCl 0.4 mg 01/05/17 08:30 01/07/17 09:29 Flomax - PO 0.4 mg BID@0830,2200 MARIA DEL CARMEN Administration Trazodone HCl 25 mg 01/05/17 03:54 01/06/17 21:00 Desyrel - PO 25 mg HS PRN Administration INSOMNIA Last Vital Signs Temp Pulse Resp BP Pulse Ox 97.8 F 83 18 131/65 96 01/07/17 07:45 01/07/17 07:45 01/07/17 07:45 01/07/17 07:45 01/06/17 21:00 General NAD CV S1 S2 RRR no murmur/rub/gallop Lungs CTA B/L no wheezing/rales/rhonchi Abdomen soft NT/ND CMP Sodium 138 mmol/L (136-145) 01/07/17 08:15 Potassium 4.2 mmol/L (3.5-5.1) 01/07/17 08:15 Chloride 109 mmol/L (98-107) H 01/07/17 08:15 Carbon Dioxide 20 mmol/L (21-32) L D 01/07/17 08:15 Anion Gap 9 (8-16) 01/07/17 08:15 BUN 55 mg/dL (7-18) H 01/07/17 08:15 Creatinine 2.7 mg/dL (0.7-1.3) H 01/07/17 08:15 Creat Clearance w eGFR 22.97 (>60) 01/05/17 05:53 Calcium 8.7 mg/dL (8.5-10.1) 01/07/17 08:15 Total Bilirubin 0.7 mg/dL (0.2-1.0) 01/05/17 05:53 AST 29 U/L (15-37) 01/05/17 05:53 ALT 22 U/L (12-78) 01/05/17 05:53 Alkaline Phosphatase 114 U/L (45-117) 01/05/17 05:53 Total Protein 7.8 g/dl (6.4-8.2) 01/05/17 05:53 Albumin 4.2 g/dl (3.4-5.0) 01/05/17 05:53 ASSESSMENT AND PLAN: 76-year-old man with a history of hyperlipidemia, stage 4 CKD, BPH, liver transplant who presented to the ER after falling and hitting his head and right arm on a wall. 1. Acute right cerebellar ischemic infarct- slow improvement, however remains dizzy which is likely related to CVA. meclizine prn dizzyness. will need aggressive PT therapy. on asa. unable to take statin due to liver transplant hx. cont speech therapy. no events on residential monitor 2. History of liver transplant- Continue Prograf 3 Hyperlipdemia- Continue gemfibrozil 4. Stage 4 CKD- Creatinine at baseline. cont sodium bicarb 5. BPH - Continue Flomax 6. DVT ppx- SCD 7. will need STELLA on discharge. SW discussion with family tomorrow. requesting [facility] Visit type - Emergency Visit Emergency Visit: Yes ED Registration Date: 01/05/17 Care time: The patient presented to the Emergency Department on the above date and was hospitalized for further evaluation of their emergent condition. - New Patient This patient is new to me today: No - Critical Care Critical Care patient: No - Discharge Referral Referred to [facility] Med [facility] No
[2017-01-07] MEDS ORDERED: MECLIZINE HCL 12.5 MG TABLET PO PRN (13:31)
[2017-01-07 14:06] LABS: ANION GAP 11 (8-16); CALCIUM 8.4 mg/dL (8.5-10.1); CO2 21 mmol/L (21-32); CREATININE 2.6 mg/dL (0.7-1.3); GLUCOSE,RANDOM 101 mg/dL (74-106)
[2017-01-07] MEDS: traZODone HCL 50 MG TABLET (FP) PO PRN (20:45)
--- NOTE | 2017-01-08 09:20 | PN ---
Physical Exam: SUBJECTIVE: Patient seen and examined at bedside. No acute events overnight. Pt still states that he is feeling dizzy. Denies chest pain, SOB, N/V, dysphgia. OBJECTIVE: Vital Signs Period Temp Pulse Resp BP Sys/Jesus Pulse Ox Last 24 Hr 97.5 F-98.8 F 74-87 14-20 119-147/60-89 96 GENERAL: The patient is awake, alert, and fully oriented, in no acute distress. HEAD: Normal with no signs of trauma. EYES: PERRL, extraocular movements intact, sclera anicteric, conjunctiva clear. ENT: Pt declined ENT exam NECK: Trachea midline, supple. LUNGS: Breath sounds equal, clear to auscultation bilaterally, no wheezes, no crackles, no accessory muscle use. HEART: Regular rate and rhythm, S1, S2 without murmur, rub or gallop. ABDOMEN: Soft, nontender, nondistended, normoactive bowel sounds, no guarding, no rebound EXTREMITIES: 2+ posterior tibial pulses, no edema. NEUROLOGICAL: Cranial nerves II through XII grossly intact. Nose to finger test , heel to lee test WNL. Motor strength 4/5 in all extremities, no drift in upper or lower extremities. Sensation diminished R lower extremity, lateral calf - unchanged from before. PSYCH: pleasant mood Laboratory Results - last 24 hr 01/07/17 01/07/17 01/07/17 08:15 08:30 13:40 Sodium 138 140 Potassium 4.2 3.9 Chloride 109 H 108 H Carbon Dioxide 20 L D 21 Anion Gap 9 11 BUN 55 H 51 H Creatinine 2.7 H 2.6 H Random Glucose 99 D 101 Calcium 8.7 8.4 L Ur Random Sodium 80 Ur Random Potassium 21.6 Ur Random Chloride 85 Active Medications Generic Name Dose Route Start Last Admin Trade Name Freq PRN Reason Stop Dose Admin Aspirin 81 mg 01/05/17 10:00 01/07/17 09:29 Ecotrin - PO 81 mg DAILY MARIA DEL CARMEN Administration Meclizine HCl 12.5 mg 01/07/17 13:31 Antivert - PO Q6H PRN dizzyness Ranitidine HCl 150 mg 01/05/17 10:00 01/07/17 21:13 Zantac - PO 150 mg BID MARIA DEL CARMEN Administration Sodium Bicarbonate 650 mg 01/05/17 10:00 01/07/17 09:29 Sodium Bicarbonate - PO 650 mg DAILY MARIA DEL CARMEN Administration Tacrolimus 0.5 mg 01/05/17 08:00 01/07/17 09:28 Prograf (Non-Formulary) PO 0.5 mg DAILY@0800 MARIA DEL CARMEN Administration Tamsulosin HCl 0.4 mg 01/05/17 08:30 01/07/17 21:13 Flomax - PO Not Given BID@0830,2200 MARIA DEL CARMEN Trazodone HCl 25 mg 01/05/17 03:54 01/07/17 20:45 Desyrel - PO 25 mg HS PRN Administration INSOMNIA ASSESSMENT/PLAN: 76 y/o M with PMH HLD, CKD, s/p liver transplant, admitted for fall secondary to R cerebellar lobe. 1. Acute R cerebellar infarct -Pt still feeling dizzy, meclizine 12.5 mg PO q6 PRN -PT needs to assess, subacute rehab 2. s/p liver transplant -Continue prograf 0.5mg PO -Prograf levels still pending -Will not start statin b/c of decreased liver function 3. HLD -pt restarted on his home medication, gemfibrozil
[2017-01-08] MEDS: RANITIDINE HCL 150 MG TABLET (FP) PO SCH ×2 (09:44→22:02)
[2017-01-08] MEDS: TAMSULOSIN HCL 0.4 MG CAP.ER.24H (FP) PO SCH ×2 (09:45→22:02)
[2017-01-08] MEDS: TACROLIMUS 0.5 MG CAPSULE (NF) PO SCH (09:45)
[2017-01-08] MEDS: ASPIRIN COATED 81 MG TABLET.EC PO SCH (09:45)
[2017-01-08] MEDS: SODIUM BICARBONATE 325 MG TABLET PO SCH (09:45)
--- NOTE | 2017-01-08 11:55 | PN ---
Progress Note, [employer] - Note Progress Note: Selected Entries 01/06/17 01/06/17 01/06/17 02:00 05:50 09:30 Breakfast Diet Tolerated Well Lunch Temperature 98.1 F 979 F H 01/06/17 01/06/17 01/06/17 11:29 12:55 15:04 Breakfast 75% Diet Tolerated Well Well Lunch 100% Temperature 97.5 F L 01/06/17 01/06/17 01/06/17 17:00 20:34 21:00 Breakfast Diet Tolerated Well Lunch Temperature 97.7 F 98.4 F 01/07/17 01/07/17 01/07/17 02:00 05:51 07:37 Breakfast Diet Tolerated Well Lunch Temperature 98.8 F 97.5 F L 01/07/17 01/07/17 01/07/17 07:45 11:13 14:04 Breakfast 100% Diet Tolerated Well Lunch Temperature 97.8 F 97.5 F L 01/07/17 01/07/17 01/07/17 17:00 20:13 22:00 Breakfast Diet Tolerated Well Lunch Temperature 97.6 F 97.9 F 01/08/17 01/08/17 02:00 08:05 Breakfast Diet Tolerated Lunch Temperature 98.8 F 98.2 F MRI- Acute right cerebellar infarct. Dislikes mechanical soft diet, although overtly tolerating diet without difficulty. Ataxic dysarthria improving, but suspected not yet baseline. xcessive variation of prosody and articulation with fair intelligibilty. Swallowing reassessed for diet upgrade. Mastication is improved, still labored and dysfluent with reduced coordination. Suggest: mbs to upgrade diet with safety
--- NOTE | 2017-01-08 12:18 | PN ---
Progress Note (short form) - Note Progress Note: cc fall , right leg weakness and slurring of speech x 3 days ago HPI 76 year old male history of bph, hlp, s/p liver transplant . Patient has been feeling dizzzy on january 04 and felt down. He felt slurring of speech difficulty. Patient was also complain of right hip and arm pain. He is feeling better now and no dysphagia, diplopia or swallowing difficulty. 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 , history of alcohol use able to swallow, alert follow command eomi, no face asymmetry, patient feels speech is back to normal there is no motor weakness identified on right upper extremity and lower extremity no sensory loss and no sensory loss there is slight dysmetria on right upper and lower extremity ct unremarkable Assessment-- right cerebellar stroke, Plan agree with continuation of aspirin, - would add lipitor 10 mg if ok with primary - risk factor modifications -waiting for rehab placement - continue pt and dvt prophylaxis -- would see him as needed basis Thanks for consult Danny Damian MD
--- NOTE | 2017-01-08 14:28 | PN ---
Teaching Attending Note Name of Resident: Alycia Martinez ATTENDING PHYSICIAN STATEMENT I saw and evaluated the patient. I reviewed the resident's note and discussed the case with the resident. I agree with the resident's findings and plan as documented. SUBJECTIVE:states dizzyness has improved but has not stood out of the bed. slurred speech improved. no CP, SOB,fever, chills, palpitations. OBJECTIVE: Last Vital Signs Temp Pulse Resp BP Pulse Ox 98.2 F 74 14 144/60 96 01/08/17 08:05 01/08/17 08:05 01/08/17 08:05 01/08/17 08:05 01/08/17 09:00 General NAD CV S1 S2 RRR no murmur/rub/gallop ASSESSMENT AND PLAN: 76-year-old man with a history of hyperlipidemia, stage 4 CKD, BPH, liver transplant who presented to the ER after falling and hitting his head and right arm on a wall. 1. 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 evaluated by speech and swallow and diet upgraded. call placed out to financial accountant if ok to start statin. awaiting STELLA placement. on asa 2. History of liver transplant- Continue Prograf 3 Hyperlipdemia- Continue gemfibrozil 4. Stage 4 CKD- Creatinine at baseline. cont sodium bicarb 5. BPH - Continue Flomax 6. DVT ppx- SCD 7. will need STELLA on discharge. family requesting [facility]
--- NOTE | 2017-01-08 17:48 | PN ---
Physical Exam: SUBJECTIVE: Patient seen and examined at bedside. Pt states that he is still feeling dizzy. Denies chest pain, SOB. OBJECTIVE: Vital Signs Period Temp Pulse Resp BP Sys/Jesus Pulse Ox Last 24 Hr 97.5 F-98.8 F 74-87 14-20 120-147/60-89 96-96 GENERAL: The patient is awake, alert, and fully oriented, in no acute distress. HEAD: Normal with no signs of trauma. EYES: PERRL, extraocular movements intact, sclera anicteric, conjunctiva clear. NECK: Trachea midline, full range of motion, supple. LUNGS: Breath sounds equal, clear to auscultation bilaterally, no wheezes, no crackles, no accessory muscle use. HEART: Regular rate and rhythm, S1, S2 without murmur, rub or gallop. ABDOMEN: Soft, nontender, nondistended, normoactive bowel sounds, no guarding, no rebound, no hepatosplenomegaly, no masses. EXTREMITIES: 2+ posterior tibial pulses, warm, well-perfused, no edema. NEUROLOGICAL: Cranial nerves II through XII grossly intact. Heel to lee test, finger to nose test- WNL. No new focal neurological deficits noted. Active Medications Generic Name Dose Route Start Last Admin Trade Name Freq PRN Reason Stop Dose Admin Aspirin 81 mg 01/05/17 10:00 01/08/17 09:45 Ecotrin - PO 81 mg DAILY MARIA DEL CARMEN Administration Bacitracin 1 applic 01/08/17 17:30 Bacitracin - TP DAILY MARIA DEL CARMEN Meclizine HCl 12.5 mg 01/07/17 13:31 Antivert - PO Q6H PRN dizzyness Ranitidine HCl 150 mg 01/05/17 10:00 01/08/17 09:44 Zantac - PO 150 mg BID MARIA DEL CARMEN Administration Sodium Bicarbonate 650 mg 01/05/17 10:00 01/08/17 09:45 Sodium Bicarbonate - PO 650 mg DAILY MARIA DEL CARMEN Administration Tacrolimus 0.5 mg 01/05/17 08:00 01/08/17 09:45 Prograf (Non-Formulary) PO Not Given DAILY@0800 MARIA DEL CARMEN Tamsulosin HCl 0.4 mg 01/05/17 08:30 01/08/17 09:45 Flomax - PO 0.4 mg BID@0830,2200 MARIA DEL CARMEN Administration Trazodone HCl 25 mg 01/05/17 03:54 01/07/17 20:45 Desyrel - PO 25 mg HS PRN Administration INSOMNIA ASSESSMENT/PLAN: 76 y/o M with PMH HLD, CKD, s/p liver transplant, admitted for fall secondary to R cerebellar lobe. 1. Acute R cerebellar infarct -PT needs to assess, subacute rehab -Pt walked with PT this afternoon- much improved, though still stiff -Modified Barium swallow ordered, will f/u -Waiting on placement from [place] 2. s/p liver transplant -Continue prograf 0.5mg PO -Prograf levels still pending -Call attempts to reach location man at [facility] made, will continue to call- to discuss statin use in this patient 3. HLD -pt restarted on his home medication, gemfibrozil Visit type - Emergency Visit Emergency Visit: No - New Patient This patient is new to me today: No - Critical Care Critical Care patient: No
[2017-01-08] MEDS: BACITRACIN 15 GM TUBE TOPICAL OINTMENT TP SCH (18:16)
[2017-01-08] MEDS: traZODone HCL 50 MG TABLET (FP) PO PRN (22:02)
[2017-01-09 08:01] LABS: BASOPHIL 0.9 % (0-2.0); EOSINOPHIL 4.3 % (0-4.5); MCH 31.2 pg (25.7-33.7); MCHC 34.6 g/dl (32.0-35.9); MEAN CELL VOLUME 90.2 fl (80-96); MEAN PLT VOLUME 8.9 fl (7.5-11.1); PLATELET COUNT 180 K/MM3 (134-434); RDW 13.5 % (11.9-15.9); WHITE BLOOD COUNT 6.6 K/mm3 (4.0-10.0)
[2017-01-09] MEDS: TACROLIMUS 0.5 MG CAPSULE (NF) PO SCH (08:07)
[2017-01-09 08:16] LABS: ANION GAP 9 (8-16); CO2 21 mmol/L (21-32); CREATININE 2.6 mg/dL (0.7-1.3); GLUCOSE,RANDOM 99 mg/dL (74-106)
--- NOTE | 2017-01-09 08:25 | DS ---
Physical Exam: SUBJECTIVE: Patient seen and examined at bedside. Pt denies dizziness and states that he is feeling better. Denies chest pain, SOB. OBJECTIVE: Vital Signs Period Temp Pulse Resp BP Sys/Jesus Pulse Ox Last 24 Hr 97.5 F-98.2 F 73-83 18-20 105-144/62-84 96 PHYSICAL EXAM GENERAL: The patient is awake, alert, and fully oriented, in no acute distress. HEAD: Normal with no signs of trauma. EYES: PERRL, extraocular movements intact, sclera anicteric, conjunctiva clear. NECK: Trachea midline, full range of motion, supple. LUNGS: Breath sounds equal, clear to auscultation bilaterally, no wheezes, no crackles, no accessory muscle use. HEART: Regular rate and rhythm, S1, S2 without murmur, rub or gallop. ABDOMEN: Soft, nontender, nondistended, normoactive bowel sounds, no guarding, no rebound EXTREMITIES: 2+ posterior tibial pulses, warm, well-perfused, no edema. NEUROLOGICAL: Cranial nerves II through XII grossly intact. NIH stroke scale score 1 unchanged. No new focal deficits. Heel to lee and finger to nose WNL. Sensation intact, except for R lateral calf where it is diminished. LABS 01/04/17 01/04/17 01/05/17 23:45 23:45 05:53 WBC 13.3 H RBC Hgb Hct Plt Count Neutrophils % 89.0 H Lymphocytes % 5.8 L PTT (Actin FS) BUN 55 H 54 H Creatinine 2.9 H 2.7 H Creatine Kinase 240 323 H D Troponin I < 0.02 < 0.02 B-Natriuretic Peptide 494.01 H Triglycerides 168 H Cholesterol 250 H Total LDL Cholesterol 161 H HDL Cholesterol 36 L Ur Random Sodium Ur Random Potassium Ur Random Chloride 01/05/17 01/07/17 01/07/17 05:53 08:15 08:30 WBC RBC Hgb Hct Plt Count Neutrophils % Lymphocytes % PTT (Actin FS) 38.9 H BUN 55 H Creatinine 2.7 H Creatine Kinase Troponin I B-Natriuretic Peptide Triglycerides Cholesterol Total LDL Cholesterol HDL Cholesterol Ur Random Sodium 80 Ur Random Potassium 21.6 Ur Random Chloride 85 01/07/17 01/09/17 13:40 05:35 WBC 6.6 D RBC 4.48 Hgb 14.0 Hct 40.4 Plt Count 180 Neutrophils % Lymphocytes % PTT (Actin FS) BUN 51 H Creatinine 2.6 H Creatine Kinase Troponin I B-Natriuretic Peptide Triglycerides Cholesterol Total LDL Cholesterol HDL Cholesterol Ur Random Sodium Ur Random Potassium Ur Random Chloride IMAGING 01/04/17: CXR: no acute pathology 01/04/17: Elbow Xray: no acute pathology 01/04/17: EKG: Sinus rhythm with first degree block 01/04/17: Hip/pelvis Xray: no pathology 01/05/17: Cervical spine CT: no acute bony abnormality seen, intact odontoid, predental space not widened, multilevel fusion of vertebral bodies, facet joints with ossification, diffuse idiopathic skeletal hyperostosis, spinal stenosis 01/05/17: Head CT: Nonhemorrhagic infarct, R cerebellum 01/05/17: Thoracic Spine CT: upper abdominal aneurysm, 5cm 01/05/17: Brain MRI: acute R cerebellar infarct, punctate chronic R basal ganglia infarcts 01/05/17: Carotid Doppler: WNL, no stenosis 01/05/17: Echo: regional wall motion abnormalities can't be excluded HOSPITAL COURSE: Date of Admission:01/05/17 Date of Discharge: 01/09/17 Admit diagnosis: fall secondary to CVA Pre-admission course Patient is a 76 year old male with a PMHx of Liver transplant (On Tacrolimus), HLD, CKD, BPH who was BIBEMS s/p fall. Patient reports he felt weak throughout the day and relates it to poor oral intake for the last 24 hours but is unsure why he feels this way. Patient remembers standing up then feeling weak and falling on his right side landing on his right forearm and right hip. Otherwise , patient denies fever, chills, abdominal pain, chest pain, palpitations, shortness of breath. Hospital course While on the floor, pt was worked up for stroke via lipid panel, EKG, Carotid doppler, Echo and head CT. Pt's lipid panel returned elevated, with Triglycerides of 168, cholesterol 250, total LDL 161, and HDL 36, and carotid doppler was found to be negative. Troponins were also trended to r/o cardiac causes, and returned negative. EKG revealed sinus rhythm with first degree block. Head CT showed R acute cerebellar infarct. During this time, pt's NIH stroke scale score was 1, which remained unchanged during his admission. Pt was maintained on aspirin 81 mg and his home medications, and underwent physical therapy to stabilize him. He was also on a standing order of meclizine to aid with dizziness, however towards the end of pt's hospitalization, pt denied dizziness. Speech and swallow also saw pt due to mild impairment and dysphagia, and modified barium swallow was conducted to update patient's diet safely. Team also considered adding a statin to prevent further reoccurrence of stroke, however this is a discussion patient can have with his power distribution engineer from [facility]. Pt is continued on prografin 0.5 mg PO daily s/p liver transplant. Minutes to complete discharge: 32 Discharge Summary Reason For Visit: FALL CVA RIGHT SIDED (STROKE BED) Current Active Problems Fall (Acute) Right-sided cerebrovascular accident (CVA) (Acute) Condition: Stable - Instructions Diet, Activity, Other Instructions: You were recently in the hospital for a stroke. It is important that you continue physical therapy to strengthen your muscles for stability. You may resume your home medications. Please discuss the use of a statin with your liver transplant doctor, Dr. Von Sharma. Please see your primary care physician, a neurologist, Dr. Damian, and your power distribution engineer Dr. Sharma over the next week. If you develop chest pain, shortness of breath, fall, or develop any new symptoms, please go to the hospital. We hope you feel better soon. Referrals: Danny Damian MD [Staff Physician] - Disposition: LONGTERM FACILITY - Home Medications Comprehensive Discharge Medication List: Ambulatory Orders Aspirin [ASA -] 81 mg PO DAILY 01/05/17 Famotidine [Pepcid] 20 mg PO BID 01/05/17 Sodium Bicarbonate 650 mg PO DAILY 01/05/17 Tacrolimus [Prograf] 1 mg PO AM 01/05/17 Tamsulosin HCl [Flomax -] 0.4 mg PO BID 01/05/17 Trazodone HCl 25 mg PO HS PRN 01/05/17 Bacitracin - [Bacitracin Topical Ointment -] 1 applic TP DAILY tube 01/09/17 This patient is new to me today: No Emergency Visit: No Critical Care patient: No - Discharge Referral Referred to [facility] Med P.C.: No
[2017-01-09 08:28] VITALS: BP 134/68; PULSE 74; TEMP 98
[2017-01-09] MEDS ORDERED: PT OWN MED DRAWER 7, Y5N ONE (09:27)
[2017-01-09] MEDS: ASPIRIN COATED 81 MG TABLET.EC PO SCH (09:31)
[2017-01-09] MEDS: BACITRACIN 15 GM TUBE TOPICAL OINTMENT TP SCH (09:32)
[2017-01-09] MEDS: SODIUM BICARBONATE 325 MG TABLET PO SCH (09:32)
[2017-01-09] MEDS: RANITIDINE HCL 150 MG TABLET (FP) PO SCH (09:32)
[2017-01-09] MEDS: TAMSULOSIN HCL 0.4 MG CAP.ER.24H (FP) PO SCH (09:32)
--- NOTE | 2017-01-09 10:58 | PN ---
Teaching Attending Note Name of Resident: Alycia Martinez ATTENDING PHYSICIAN STATEMENT I saw and evaluated the patient. I reviewed the resident's note and discussed the case with the resident. I agree with the resident's findings and plan as documented. SUBJECTIVE:asymptomatic. denies CP, SOB, fever, chills, palpitations OBJECTIVE: Last Vital Signs Temp Pulse Resp BP Pulse Ox 98 F 74 14 134/68 96 01/09/17 08:10 01/09/17 08:10 01/09/17 08:10 01/09/17 08:10 01/08/17 09:00 General NAD ASSESSMENT AND PLAN: 76-year-old man with a history of hyperlipidemia, stage 4 CKD, BPH, liver transplant who presented to the ER after falling and hitting his head and right arm on a wall. 1. Acute right cerebellar ischemic infarct- slow improvement, continue speech therapy. will need to d/w senior grant writer if able to start low intensity statin. on asa. neuro f/u as outpatient. 2. History of liver transplant- Continue Prograf 3 Hyperlipdemia- Continue gemfibrozil 4. Stage 4 CKD- Creatinine at baseline. cont sodium bicarb 5. BPH - Continue Flomax 6. DVT ppx- SCD 7. d/c to [facility]
== END 2017-01-09 10:42 | DRG 65 ==
LOC: JER 21:37 → JERBED 01-05 01:46 → UNDOADMIN 01-05 02:08 → JERBED 01-05 02:08 → J4W 01-05 04:21
PROVIDERS: ADMIT Internal Medicine; ATTEND Internal Medicine
DX: I63.9 Cerebral infarction, unspecified (principal); N17.9 Acute kidney failure, unspecified; Z94.4 Liver transplant status; N18.4 Chronic kidney disease, stage 4 (severe); E78.5 Hyperlipidemia, unspecified; R26.89 Other abnormalities of gait and mobility; S40.022A Contusion of left upper arm, initial encounter; S40.021A Contusion of right upper arm, initial encounter; W18.39XA Other fall on same level, initial encounter; Z91.81 History of falling; Y92.009 Unspecified place in unspecified non-institutional (private) residence as the place of occurrence of the external cause; N40.0 Benign prostatic hyperplasia without lower urinary tract symptoms; I71.4 Abdominal aortic aneurysm, without rupture; R47.1 Dysarthria and anarthria; G47.00 Insomnia, unspecified; R26.0 Ataxic gait; Z98.1 Arthrodesis status; M48.00 Spinal stenosis, site unspecified
CPT/HCPCS: 36415; 70450-TC; 70551-TC; 71010-TC; 72125-TC; 72128-TC; 73070-TC-RT; 73523-TC; 74230-TC; 80048; 80053; 80061; 80197; 82436; 82550; 82553; 82607; 83036; 83721; 83880; 84133; 84300; 84443; 84484; 85025; 85610; 85651; 85730; 86140; 86850; 86900; 86901; 92611-GN; 93005; 93010; 93306-TC; 93880-TC; 97116-GP; 97162-GP; 99284-25